=== PATIENT | female | born 1970 ===

== ENCOUNTER 2018-05-25 12:14 | Outpatient (CLI) | payer OTHER ==
[~2018-05-25] VITALS: Ht 165.1 cm; Wt 51.3 kg
== END 2018-05-25 12:30 | disposition home or self-care (01) ==
LOC: OFIC 805 12:14
DX: R49.0 Dysphonia (principal); R05 Cough; K21.0 Gastro-esophageal reflux disease with esophagitis

== ENCOUNTER 2018-09-13 17:43 | Outpatient (CLI) | payer OTHER | END 2018-09-13 17:57 | disposition home or self-care (01) | LOC: RAD 17:43 | DX: R05 Cough (principal) ==